=== PATIENT | male | born 1930 | race Caucasian/White ===

== ENCOUNTER → 2016-09-26 | Outpatient (CLI) | payer MEDICARE ==
[~2016-09-26] MED LIST: FLOMAX0.4 MG PO; INDERAL LA80 MG PO; MYSOLINE250 MG PO; [UNRECOGNIZED DRUG - OTHER] PO
== END | disposition disaster alternative care site (69) ==
LOC: GRAD 09:33
DX: R07.9 Chest pain, unspecified (principal); K76.9 Liver disease, unspecified; I70.90 Unspecified atherosclerosis; I51.7 Cardiomegaly; K80.20 Calculus of gallbladder without cholecystitis without obstruction; J98.4 Other disorders of lung; R63.4 Abnormal weight loss; R10.9 Unspecified abdominal pain
CPT/HCPCS: Q9967

== ENCOUNTER 2016-10-14 07:56 | Day surgery (SDC) | payer MEDICARE ==
[~2016-10-14] VITALS: Ht 154.9 cm; Wt 57.5 kg
== END 2016-10-14 11:25 | disposition disaster alternative care site (69) ==
LOC: GSIP 07:56 → GEND 07:56 → GPOC 08:00 → GEND 11:25 → GPOC 14:00
PROC: 0DB98ZX Excision of Duodenum, Via Natural or Artificial Opening Endoscopic, Diagnostic (ICD-10-PCS; principal; 2016-10-14)
PROC: 0DB68ZX Excision of Stomach, Via Natural or Artificial Opening Endoscopic, Diagnostic (ICD-10-PCS; 2016-10-14)
DX: K29.50 Unspecified chronic gastritis without bleeding (principal); B96.81 Helicobacter pylori [H. pylori] as the cause of diseases classified elsewhere; M19.90 Unspecified osteoarthritis, unspecified site; Z85.46 Personal history of malignant neoplasm of prostate; Z90.79 Acquired absence of other genital organ(s); Z98.890 Other specified postprocedural states
CPT/HCPCS: J2001; J7120